=== PATIENT | male | born 1970 | race Caucasian/White ===

== ENCOUNTER → 2017-11-28 | Outpatient (CLI) | payer OTHER ==
[~2017-11-28] MED LIST: NAPR550 PO; RXHYDACE PO; TOBR.3OPO OP
== END | disposition home or self-care (01) ==
LOC: LAB SHORT 08:39 → PLD 08:39
DX: L57.0 Actinic keratosis (principal)
CPT/HCPCS: 88305

== ENCOUNTER → 2025-04-03 | Emergency (ER) | payer BC ==
[~2025-04-03] VITALS: Ht 172.7 cm; Wt 95.2 kg
[~2025-04-03] MED LIST changes: +CELE100 PO; +CEPH250A PO; +Cephalexin Monohydrate 250 MG/5 ML UD BTL PO ONE; +DICLOFENAC SODI50 GM TOP; +Gabapentin600 MG PO; +LISI10 PO; +MULVITA PO; +TRAZ100 PO; +XDEMVY10 ML BOTHEYES
[2025-04-03 21:45] VITALS: BP 147/99
== END ==
LOC: ER 21:32
DX: S70.351A Superficial foreign body, right thigh, initial encounter (principal); W44.D0XA Magnetic metal object unspecified, entering into or through a natural orifice, initial encounter; Z79.899 Other long term (current) drug therapy; Z88.2 Allergy status to sulfonamides
CPT/HCPCS: 90471; 90715; 99283-25; A9270